=== PATIENT | female | born 1940 | race Caucasian/White ===

== ENCOUNTER → 2016-07-27 | Outpatient (CLI) | payer OTHER ==
[~2016-07-27] MED LIST: ADULT LOW DOSE81 MG PO; B-100 COMPLEX1 EAC1 PO; BALSALAZIDE DI750 M1 PO; CELEXA40 MG PO; DILTIA XT240 MG PO; DILTIAZEM 24HR180 M2; DILTIAZEM 24HR240 MG PO; FISH OIL 1,001000 M2 PO; FISH OIL 1,2001 EAC4 PO; FISHOIL; HYDROCODON-ACE1 EAC5 PO; HYDROCODONE BI473 ML PO; IBUPROFEN 800800 MG PO; KLOR-CON 1010 MEQ PO; LASIX 40 MG TAB40 MG GT; LOSARTAN-HCTZ1 EAC1 PO; MICARDIS HCT 81 EAC1 PO; MULTIVITAMINS PO; NEPHROCAPS SOFT1 CAP PO; NORCO 5-325 TA1 EACH; OMEPRAZOLE20 MG PO; PERCOCET 10-321 EACH PO; PERCOCET PO; PRAVASTATIN SOD40 MG PO; PROTONIX40 M2 PO; REMICADE 1100 MG/VIA; SINGULAIR 10 MG10 M1 PO; ZANTAC 150MG T150 MG PO
== END ==
LOC: RAD 12:26
DX: R05 Cough (principal)

== ENCOUNTER → 2017-01-03 | Outpatient (CLI) | payer OTHER ==
[2017-01-03 08:56] LABS: CREATININE 1.1 mg/dL (0.6-1.0)
== END ==
LOC: LABMALL 08:26 → CAT 10:52 → LABMALL 10:54
PROVIDERS: Internal Medicine Pulmonary Disease
DX: K44.9 Diaphragmatic hernia without obstruction or gangrene (principal)

== ENCOUNTER → 2018-09-04 | Outpatient (CLI) | payer OTHER | LOC: NUC 08:43 | DX: M17.0 Bilateral primary osteoarthritis of knee (principal); M19.072 Primary osteoarthritis, left ankle and foot; M19.071 Primary osteoarthritis, right ankle and foot; M51.34 Other intervertebral disc degeneration, thoracic region ==